=== PATIENT | male | born 1940 | race Caucasian/White ===

== ENCOUNTER 2018-12-11 09:39 | Emergency (ER) | payer MEDICARE, OTHER ==
[~2018-12-11] VITALS: Ht 177.8 cm; Wt 77.3 kg
[2018-12-11 12:45] VITALS: BP 112/64
== END 2018-12-11 13:26 | disposition home or self-care (01) ==
LOC: EMS 09:42
DX: M54.6 Pain in thoracic spine (principal); M54.2 Cervicalgia; G89.29 Other chronic pain; I11.0 Hypertensive heart disease with heart failure; I50.9 Heart failure, unspecified